=== PATIENT | female | born 1960 | race Caucasian/White ===

== ENCOUNTER 2017-10-10 02:28 | Emergency (ER) | payer OTHER ==
[2017-10-10 02:39] VITALS: BP 134/99; PULSE 89; TEMP 97.5; BMI 27.4
[2017-10-10] MEDS ORDERED: methylPREDNISolone NA SUCC 125 MG/2 ML VIAL ONE (02:49)
[2017-10-10] MEDS ORDERED: FAMOTIDINE 20 MG/50 ML IVPB 20 MG/50 ML MG IVPB ONE ×2 (02:49)
[2017-10-10] MEDS ORDERED: SODIUM CHLORIDE 1,000 ML IV STA (02:49)
[2017-10-10] MEDS ORDERED: methylPREDNISolone NA SUCC 125 MG/2 ML VIAL IVPUSH ONE (02:50)
--- NOTE | 2017-10-10 03:56 | PDOC ---
History of Present Illness - General Chief Complaint: Rash Stated Complaint: REDNESS/ITCHING Time Seen by Provider: 10/10/17 02:40 History Source: Patient Exam Limitations: No Limitations - History of Present Illness Initial Comments: 10/10/17 03:52 Patient is a 57-year-old female who presents to the emergency department today for a full body rash. Patient states that the rash started yesterday. She states that it is very itchy and appeared shortly after eating a pasta dinner. She states that the rash did not get better so she presented to the emergency department. She did not take any medication for the rash. Denies fevers, chills , difficulty swallowing, tongue swelling, shortness of breath, difficulty breathing, nausea, vomiting diarrhea. Past History - Travel Traveled outside of the country in the last 30 days: No Close contact w/someone who was outside of country & ill: No - Past Medical History Allergies/Adverse Reactions: Allergies Allergy/AdvReac Type Severity Reaction Status Date / Time Penicillins Allergy Verified 10/10/17 02:37 Home Medications: Ambulatory Orders Ascorbic Acid [Vitamin C -] 500 mg PO DAILY 10/04/17 Cholecalciferol (Vitamin D3) [Vitamin D3] 1,000 unit PO DAILY 10/04/17 Glucosamine/MSM/Chondroitin A [Glucosamine Chondroit MSM Tab] 1 each PO DAILY Metformin HCl [Glucophage] 1,000 mg PO BID 10/04/17 Ranitidine [Zantac -] 2 cap PO DAILY 10/04/17 Simvastatin 20 mg PO HS 10/04/17 predniSONE [Deltasone -] 40 mg PO DAILY #8 tablet 10/10/17 COPD: No Diabetes: Yes - Surgical History Cholecystectomy: Yes - Immunization History Immunization Up to Date: Yes - Suicide/Smoking/Psychosocial Hx Smoking History: Never smoked Have you smoked in the past 12 months: No Information on smoking cessation initiated: No Hx Alcohol Use: No Drug/Substance Use Hx: No Substance Use Type: None Review of Systems - Review of Systems Able to Perform ROS?: Yes Comments:: 10/10/17 03:53 CONSTITUTIONAL: Absent: fever, chills, diaphoresis, generalized weakness, malaise, loss of appetite HEENT: Absent: rhinorrhea, nasal congestion, throat pain, throat swelling, difficulty swallowing, mouth swelling, ear pain, eye pain, visual Changes CARDIOVASCULAR: Absent: chest pain, loss of consciousness, palpitations, irregular heart rate, peripheral edema RESPIRATORY: Absent: cough, shortness of breath, dyspnea with exertion, orthopnea, wheezing, stridor, hemoptysis GASTROINTESTINAL: Absent: abdominal pain, abdominal distension, nausea, vomiting, diarrhea, constipation, melena, hematochezia GENITOURINARY: Absent: dysuria, frequency, urgency, hesitancy, hematuria, flank pain, genital pain MUSCULOSKELETAL: Absent: myalgia, arthralgia, joint swelling SKIN: Present: full body rash Absent: rash, itching, pallor HEMATOLOGIC/IMMUNOLOGIC: Absent: easy bleeding, easy bruising, lymphadenopathy, frequent infections ENDOCRINE: Absent: unexplained weight gain, unexplained weight loss, heat intolerance, cold intolerance NEUROLOGIC: Absent: headache, focal weakness or paresthesias, dizziness, unsteady gait, seizure, mental status changes, bladder or bowel incontinence PSYCHIATRIC: Absent: anxiety, depression, suicidal or homicidal ideation, hallucinations. Is the patient limited Salvadorean proficient: No *Physical Exam - Vital Signs Last Vital Signs Temp Pulse Resp BP Pulse Ox 97.5 F L 89 20 134/99 100 10/10/17 02:37 10/10/17 02:37 10/10/17 02:37 10/10/17 02:37 10/10/17 02:37 - Physical Exam Comments: 10/10/17 03:54 GENERAL: Well developed, well nourished. Awake and alert. No acute distress. HEENT: Normocephalic, atraumatic. PERRLA, EOMI. No conjunctival pallor. Sclera are non- icteric. Moist mucous membranes. Oropharynx is clear. NECK: Supple. Full ROM. No JVD. Carotid pulses 2+ and symmetric, without bruits. No thyromegaly. No lymphadenopathy. CARDIOVASCULAR: Regular rate and rhythm. No murmurs, rubs, or gallops. Distal pulses are 2+ and symmetric. PULMONARY: No evidence of respiratory distress. Lungs clear to auscultation bilaterally. No wheezing, rales or rhonchi. ABDOMINAL: Soft. Non-tender. Non-distended. No rebound or guarding. No organomegaly. Normoactive bowel sounds. MUSCULOSKELETAL Normal range of motion at all joints. No bony deformities or tenderness. No CVA tenderness. EXTREMITIES: No cyanosis. No clubbing. No edema. No calf tenderness. SKIN: Pt with hives and erythema to the chest, back, arms, abdomen, legs and face. (+ ) pruritis. Warm and dry. Normal capillary refill. No jaundice. NEUROLOGICAL: Alert, awake, appropriate. Cranial nerves 2-12 intact. No deficits to light touch and temperature in face, upper extremities and lower extremities. No motor deficits in the in face, upper extremities and lower extremities. Normoreflexic in the upper and lower extremities. Normal speech. Toes are down- going bilaterally. Gait is normal without ataxia. PSYCHIATRIC: Cooperative. Good eye contact. Appropriate mood and affect. ED Treatment Course - Medications Given in the ED: ED Medications Discontinued Medications Generic Name Dose Route Start Last Admin Trade Name Freq PRN Reason Stop Dose Admin Diphenhydramine HCl 50 mg 10/10/17 02:50 10/10/17 02:53 Benadryl Injection - IVPUSH 10/10/17 02:51 50 mg ONCE ONE Administration Famotidine/Sodium Chloride 20 mg in 50 mls @ 100 mls/hr 10/10/17 02:49 02:54 Pepcid 20 Mg Premixed Ivpb - IVPB 10/10/17 03:18 100 mls/hr ONCE ONE Administration Sodium Chloride 1,000 mls @ 1,000 mls/hr 10/10/17 02:49 10/10/17 02:54 Normal Saline - IV 10/10/17 03:48 1,000 mls/hr ASDIR STA Administration Methylprednisolone Sodium Succinate 125 mg 10/10/17 02:50 10/10/17 02:54 Solu-Medrol - IVPUSH 10/10/17 02:51 125 mg ONCE ONE Administration Medical Decision Making - Medical Decision Making 10/10/17 03:55 Patient is a 57-year-old female who presents to the emergency department for 1 day of rash. On exam patient clinically presents with hives most likely an ALLERGIC reaction from her dinner last night. No airway swelling, uvula is midline. Lung sounds are clear to auscultation bilaterally with good aeration to the bases. We'll treat for ALLERGIC reaction at this time. Benadryl, Solu- Medrol and Pepcid given with fluids. Reevaluate. 10/10/17 04:34 Rash improved dramatically with medication. No erythema at this time. A few residual hives to the upper arms b/l. Will dc home at this time with benadryl and prednisone. Phone number for allergy testing given. Return precautions given. Pt understands all dc instructions and all questions were answered. *DC/Admit/Observation/Transfer Diagnosis at time of Disposition: Allergic reaction Qualifiers: Encounter type: initial encounter Qualified Code(s): T78.40XA - Allergy, unspecified, initial encounter - Discharge Dispostion Disposition: HOME Condition at time of disposition: Stable Decision to Admit order: No - Referrals Referrals: Mahin Perez MD [Primary Care Provider] - Leodan Pham MD [Staff Physician] - - Patient Instructions Printed Discharge Instructions: DI for General Allergic Reactions Additional Instructions: You had an ALLERGIC reaction from something he ate. Please take the prednisone as prescribed. Start taking it on Saturday10/11/17. Please take Benadryl 25 mg every 8 hours for the next 48 hours. Follow-up with Dr. Pham for ALLERGY testing referral has been provided. Return to the emergency department if you've worsening itching, difficulty breathing, shortness of breath, or if you've any changes in your symptoms. Tuviste nathan reaccin ALRGICA por algo que comi. Por favor, tome la prednisona segn lo prescrito. Comience a tomarlo el viernes 11/10/17. [place] Benadryl 25 mg cada 8 horas juan j las prximas 48 horas. Se proporcion un seguimiento con el Dr. Pham para derivacin de prueba de ALERGIA. Regrese al departamento de emergencias si tiene un empeoramiento de la picazn, dificultad para respirar, dificultad para respirar o si tiene algn cambio en tammy sntomas. - Post Discharge Activity Forms/Work/School Notes: Back to Work
== END 2017-10-10 04:45 | disposition home or self-care (01) ==
LOC: JER 02:28
PROC: 3E033GC Introduction of Other Therapeutic Substance into Peripheral Vein, Percutaneous Approach (ICD-10-PCS; principal; 2017-10-10)
PROC: 3E033GC Introduction of Other Therapeutic Substance into Peripheral Vein, Percutaneous Approach (ICD-10-PCS; 2017-10-10)
PROC: 3E0333Z Introduction of Anti-inflammatory into Peripheral Vein, Percutaneous Approach (ICD-10-PCS; 2017-10-10)
DX: L50.0 Allergic urticaria (principal); T78.40XA Allergy, unspecified, initial encounter
CPT/HCPCS: 99282-25; J7030

== ENCOUNTER 2017-10-16 09:52 | Day surgery (SDC) | payer OTHER ==
[2017-10-16 10:37] VITALS: BMI 27.4
[2017-10-16] MEDS ORDERED: LIDOCAINE HCL 2% (20ML MULTI-DOSE VIAL) NR ONE (11:46)
[2017-10-16] MEDS ORDERED: PROPOFOL 20 ML ONE (11:46)
[2017-10-16 11:57] VITALS: TEMP 98.1
--- NOTE | 2017-10-16 12:02 | PROC ---
Endoscopy Procedure Endoscopy procedure completed. Please see scanned procedure report.
[2017-10-16 14:57] VITALS: BP 119/76; PULSE 67
--- NOTE | 2017-10-17 18:02 | PATH ---
Surgical Pathology Report Patient Name: BOBBY ANGEL [facility]. Rec. #: [id number] /Age/Gender: 1960 (Age: 57) / F Account: [id number] Location: [facility]-ENDOSCOPY Taken: 10/16/2017 Received: 10/16/2017 Reported: 10/17/2017 Physicians: Javy Welsh M.D. Specimen(s) Received A: BX DUODENUM B: BX ANTRUM C: ASCENDING COLON D: BX TRANSVERSE COLON E: BX DESCENDING COLON Clinical History GERD, change in bowel habits Postoperative diagnosis: GERD, diverticulosis, diarrhea Final Diagnosis A. DUODENUM, BIOPSY: DUODENAL MUCOSA WITH MILD CHRONIC DUODENITIS. B. ANTRUM, BIOPSY: GASTRIC MUCOSA WITH NO DIAGNOSTIC ABNORMALITIES. IMMUNOSTAIN IS NEGATIVE FOR H. PYLORI ORGANISMS. C. ASCENDING COLON, BIOPSY: COLONIC MUCOSA WITH REACTIVE LYMPHOID FOLLICLES. D. TRANSVERSE COLON, BIOPSY: COLONIC MUCOSA WITH MILD CHRONIC INFLAMMATION AND LYMPHOID AGGREGATES. E. DESCENDING COLON, BIOPSY: COLONIC MUCOSA WITH MILD CHRONIC INFLAMMATION AND LYMPHOID AGGREGATES. Electronically Signed Kathy Shirley M.D. Gross Description A. Received in formalin, labeled "biopsy duodenum" are 2 jenkins, irregular portions of soft tissue measuring 0.3 and 0.4 cm. in greatest dimension. The specimens are submitted in toto in one cassette. B. Received in formalin, labeled "biopsy antrum" are 3 jenkins, irregular portions of soft tissue ranging from 0.3-0.5 cm. in greatest dimension. The specimens are submitted in toto in one cassette. C. Received in formalin, labeled "biopsy ascending" are 2 jenkins, irregular portions of soft tissue measuring 0.2 and 0.5 cm. in greatest dimension. The specimens are submitted in toto in one cassette. D. Received in formalin, labeled "biopsy transverse" are 3 jenkins, irregular portions of soft tissue ranging from 0.2-0.4 cm. in greatest dimension. The specimens are submitted in toto in one cassette. E. Received in formalin, labeled "biopsy descending colon" are 2 jenkins, irregular portions of soft tissue measuring 0.3 and 0.5 cm. in greatest dimension. The specimens are submitted in toto in one cassette. DL/10/16/2017 saudi10/16/2017
== END 2017-10-16 13:30 | disposition home or self-care (01) ==
LOC: JASU-ENDO 09:52
PROVIDERS: ATTEND Internal Medicine Gastroenterology
PROC: 0DB68ZX Excision of Stomach, Via Natural or Artificial Opening Endoscopic, Diagnostic (ICD-10-PCS; 2017-10-16)
PROC: 0DJD8ZZ Inspection of Lower Intestinal Tract, Via Natural or Artificial Opening Endoscopic (ICD-10-PCS; 2017-10-16)
PROC: 0DB98ZX Excision of Duodenum, Via Natural or Artificial Opening Endoscopic, Diagnostic (ICD-10-PCS; principal; 2017-10-16 11:00)
DX: K57.30 Diverticulosis of large intestine without perforation or abscess without bleeding (principal); R10.13 Epigastric pain; K52.9 Noninfective gastroenteritis and colitis, unspecified; E11.9 Type 2 diabetes mellitus without complications; Z79.84 Long term (current) use of oral hypoglycemic drugs
CPT/HCPCS: 88305-TC; 88342-TC

== ENCOUNTER 2020-11-23 09:12 | Emergency (ER) | payer OTHER ==
[2020-11-23 09:32] VITALS: BP 130/78; PULSE 81; TEMP 98.3; BMI 28.6
[2020-11-23] MEDS ORDERED: KETOROLAC TROMETHAMINE 60 MG/2 ML VIAL IM ONE (10:39)
[2020-11-23] MEDS ORDERED: KETOROLAC TROMETHAMINE 60 MG/2 ML VIAL ONE (11:34)
== END 2020-11-23 12:25 | disposition home or self-care (01) ==
LOC: JERFT 09:12 → JER 09:12 → JERFT 12:25
PROC: 3E0233Z Introduction of Anti-inflammatory into Muscle, Percutaneous Approach (ICD-10-PCS; principal; 2020-11-23)
DX: M25.562 Pain in left knee (principal)
CPT/HCPCS: 73560-TC-LT-FY; 93971-TC; 99284-25

== ENCOUNTER 2024-02-20 17:33 | Emergency (ER) | payer OTHER ==
[2024-02-20 17:50] VITALS: BP 105/65; PULSE 75; RESP 16; TEMP 98.4; BMI 27.1
[2024-02-20] MEDS ORDERED: KETOROLAC TROMETHAMINE 30 MG/1 ML VIAL ONE (18:50)
[2024-02-20] MEDS ORDERED: LIDOCAINE 4% PATCH TP ONE (18:50)
[2024-02-20] MEDS: LIDOCAINE 4% PATCH TP ONE (19:03)
[2024-02-20] MEDS: KETOROLAC TROMETHAMINE 30 MG/1 ML VIAL IM ONE (19:04)
[2024-02-21] MEDS ORDERED: LIDOCAINE PATCH REMOVAL MC SCH (07:00)
== END 2024-02-20 19:10 | disposition home or self-care (01) ==
LOC: JER 17:33
PROC: 3E0233Z Introduction of Anti-inflammatory into Muscle, Percutaneous Approach (ICD-10-PCS; principal; 2024-02-20)
DX: R07.81 Pleurodynia (principal); R06.02 Shortness of breath
CPT/HCPCS: 71101-TC-LT-FY; 93005; 93010; 99284-25